=== PATIENT | female | born 1945 | race Caucasian/White ===

== ENCOUNTER 2023-12-08 12:07 | Observation (INO) | payer MEDICARE, OTHER ==
[2023-12-08] VITALS (7 sets, daily range): BP systolic 126–144; BP diastolic 60–88; PULSE 69–76; RESP 18–20; TEMP 97.1–98.7; O2SAT 95–98
[~2023-12-08] VITALS: Ht 147.3 cm; Wt 49.4 kg
[2023-12-08 13:11] LABS: HEMATOCRIT(ML) 33.1 % (36.0-46.0); HEMOGLOBIN 10.7 g/dL (12.0-15.0); MEAN CORP HGB 28.5 pg (26-34); MEAN CORP HGB CONCENTRATION 32.3 g/dL (33-36.5); MEAN CORP VOLUME 88.3 fL (78-100); RED BLOOD CELL 3.75 10^6/uL (4.00-5.20); RED CELL DISTRIBUTION WIDTH 14.6 % (11.5-14.5); WHITE BLOOD CELL 7.4 10^3/uL (4.5-11.0)
[2023-12-08] MEDS ORDERED: ZOFRAN ONE (13:21)
[2023-12-08] MEDS: NS 1000ML 1,000 ML IV STA (13:25)
[2023-12-08] MEDS: ZOFRAN IV PRN (13:25)
[2023-12-08 13:32] LABS: ALBUMIN(ML) 3.9 g/dL (3.4-5.0); ALBUMIN/GLOBULIN RATIO 1.083; ANION GAP 11.1; BILIRUBIN,DIRECT 0.1 mg/dL (0.0-0.3); BILIRUBIN,INDIRECT 0.2 mg/dL; BUN/CREATININE RATIO 15.46 (10.0-20.0); CALCIUM 9.7 mg/dL (8.4-10.5); CREATININE SERUM 1.94 mg/dL (0.59-1.40); EST GFR, NON-AA 24.8 (>/=60); POTASSIUM 4.1 mmol/L (3.6-5.2)
[2023-12-08 14:45] LABS: BILIRUBIN,URINE NEGATIVE (NEGATIVE); LEUKOCYTE ESTERASE ,URINE NEGATIVE (NEGATIVE); NITRATE,URINE NEGATIVE (NEGATIVE); UROBILINOGEN,URINE 0.2 E.U./dL (0.2)
[2023-12-08 14:57] LABS: APPEARANCE,URINE CLEAR; UA COLOR YELLOW
[2023-12-08] MEDS ORDERED: ZOFRAN IV PRN (17:00)
[2023-12-08] MEDS ORDERED: TYLENOL PO PRN (17:00)
[2023-12-08] MEDS ORDERED: D5NS 1,000 ML ONE (17:59)
[2023-12-08] MEDS: MIRALAX PO SCH (18:00)
[2023-12-08] MEDS: COLACE PO SCH (18:00)
[2023-12-08] MEDS: D5NS 1,000 ML IV SCH (18:00)
[2023-12-08] MEDS ORDERED: SENN8.6T11 PO (19:06)
[2023-12-08] MEDS ORDERED: FLUO40CA2 PO (19:06)
[2023-12-08] MEDS ORDERED: BUSP10TA PO (19:06)
[2023-12-08] MEDS ORDERED: PANT40TA6 PO (19:06)
[2023-12-08] MEDS ORDERED: [UNRECOGNIZED DRUG - CODE] PO (19:06)
[2023-12-08] MEDS ORDERED: [UNRECOGNIZED DRUG - CODE] PO (19:06)
[2023-12-08] MEDS ORDERED: CETI10CA11 PO (19:06)
[2023-12-08] MEDS ORDERED: LEVO75TA6 PO (19:06)
[2023-12-08] MEDS ORDERED: FLUT16SP (19:06)
[2023-12-08] MEDS ORDERED: TRIA1CAP7 PO (19:06)
[2023-12-08] MEDS ORDERED: [UNRECOGNIZED DRUG - CODE] PO (19:06)
[2023-12-08] MEDS ORDERED: ROSU40TA PO (19:06)
[2023-12-09 00:23] VITALS: BP 122/76; PULSE 68; RESP 18; TEMP 98.2; O2SAT 98
[2023-12-09 05:27] LABS: BASOPHIL % 0.3 % (0.0-0.2); EOSINOPHIL # 0.1 10^3/uL (0.0-0.2); EOSINOPHIL % 1.7 % (0.0-5.0); HEMATOCRIT(ML) 33.9 % (36.0-46.0); HEMOGLOBIN 10.8 g/dL (12.0-15.0); LYMPHOCYTES # 1.19 10^3/uL1 (1.0-4.8); LYMPHOCYTES % 18.2 % (24.0-44.0); MEAN CORP HGB 28.3 pg (26-34); MEAN CORP HGB CONCENTRATION 31.9 g/dL (33-36.5); MEAN CORP VOLUME 88.7 fL (78-100); MONOCYTES # 0.5 10^3/uL (0.3-0.8); MONOCYTES % 6.9 % (5.0-12.0); NEUTROPHIL # 4.8 10^3/uL (1.8-7.7); NEUTROPHILS % 72.7 % (41.0-85.0); PLATELET COUNT 251 10^3/uL (150-400); RED BLOOD CELL 3.82 10^6/uL (4.00-5.20); RED CELL DISTRIBUTION WIDTH 14.9 % (11.5-14.5); WHITE BLOOD CELL 6.5 10^3/uL (4.5-11.0)
[2023-12-09 05:42] VITALS: BP 130/78; PULSE 70; RESP 20; TEMP 98.2; O2SAT 97
[2023-12-09 05:43] LABS: ANION GAP 12.6; BUN/CREATININE RATIO 14.5 (10.0-20.0); CALCIUM 8.5 mg/dL (8.4-10.5); CREATININE SERUM 1.31 mg/dL (0.59-1.40); EST GFR, NON-AA 39.1 (>/=60); POTASSIUM 3.6 mmol/L (3.6-5.2)
[2023-12-09 06:31] LABS: +ADD MANUAL DIFF(NO CHRG) NO
[2023-12-09 07:56] VITALS: BP 162/89; PULSE 74; RESP 18; TEMP 98; O2SAT 95
[2023-12-09] MEDS: D5W-1/2NS 1000ML 1,000 ML IV SCH (09:21)
[2023-12-09] MEDS ORDERED: POLY17PO5 PO (10:59)
[2023-12-09 13:17] VITALS: BP 155/89; PULSE 75; RESP 18; TEMP 97.9
[2023-12-09 13:20] VITALS: BP 155/89; PULSE 75; RESP 18; TEMP 97.9; O2SAT 95
== END 2023-12-09 13:50 | disposition home or self-care (01) ==
LOC: ER 12:07 → OBS 15:27
PROVIDERS: ADMIT Internal Medicine; ATTEND Internal Medicine
DX: G93.40 Encephalopathy, unspecified (principal); N17.9 Acute kidney failure, unspecified; E86.0 Dehydration; I10 Essential (primary) hypertension; E78.5 Hyperlipidemia, unspecified; F32.A Depression, unspecified; E03.9 Hypothyroidism, unspecified; K59.00 Constipation, unspecified; N39.0 Urinary tract infection, site not specified; Z88.0 Allergy status to penicillin; Z79.899 Other long term (current) drug therapy
CPT/HCPCS: 36415; 70450; 74176; 80048; 80053; 80076; 81003; 83690; 84443; 85025; 85027; 93005; 96361; 96374; 97161; 97165; 99285; G0378; J2405; J7030; J7042

== ENCOUNTER 2023-12-31 07:52 | Emergency (ER) | payer MEDICARE ==
[~2023-12-31 07:52] MED LIST: BUSP10TA PO; CETI10CA11 PO; FLUO40CA2 PO; FLUT16SP; LEVO75TA6 PO; PANT40TA6 PO; POLY17PO5 PO; ROSU40TA PO; SENN8.6T11 PO; TRIA1CAP7 PO; [UNRECOGNIZED DRUG - CODE] PO; [UNRECOGNIZED DRUG - CODE] PO; [UNRECOGNIZED DRUG - CODE] PO
== END 2023-12-31 09:30 | disposition home or self-care (01) ==
LOC: ER 07:52
DX: K56.41 Fecal impaction (principal)
CPT/HCPCS: 74019; 99283

== ENCOUNTER → 2024-08-07 | Outpatient (CLI) | payer MEDICARE | END | disposition home or self-care (01) | LOC: MERGE 10:42 → RT 10:42 | PROVIDERS: ATTEND Nurse Practitioner Family | DX: R06.02 Shortness of breath (principal); R06.09 Other forms of dyspnea; M47.814 Spondylosis without myelopathy or radiculopathy, thoracic region; I70.0 Atherosclerosis of aorta | CPT/HCPCS: 71046; 94060; 94729 ==

== ENCOUNTER 2024-08-12 17:52 | Emergency (ER) | payer MEDICARE ==
[~2024-08-12] VITALS: Ht 147.3 cm; Wt 50.3 kg
[2024-08-12 18:22] VITALS: BP 139/105; PULSE 90; RESP 18; TEMP 99; O2SAT 99
[2024-08-12 19:53] VITALS: BP 131/83; PULSE 88; RESP 18; TEMP 99; O2SAT 99
== END 2024-08-12 19:58 | disposition home or self-care (01) ==
LOC: ER 17:52
DX: K59.00 Constipation, unspecified (principal); I10 Essential (primary) hypertension; Z90.49 Acquired absence of other specified parts of digestive tract; Z90.710 Acquired absence of both cervix and uterus; Z90.721 Acquired absence of ovaries, unilateral; Z88.0 Allergy status to penicillin; Z88.5 Allergy status to narcotic agent
CPT/HCPCS: 74019; 99283

== ENCOUNTER → 2024-11-09 | Outpatient (CLI) | payer MEDICARE ==
[~2024-11-09] MED LIST changes: +[UNRECOGNIZED DRUG - CODE] PO; -[UNRECOGNIZED DRUG - CODE] PO
[2024-11-09 13:00] LABS: ANION GAP 14.9; BUN/CREATININE RATIO 19.29 (10.0-20.0); CREATININE SERUM 1.71 mg/dL (0.59-1.40); POTASSIUM 3.9 mmol/L (3.6-5.2)
[2024-11-09 13:01] LABS: ALBUMIN(ML) 3.9 g/dL (3.4-5.0); ALBUMIN/GLOBULIN RATIO 0.928; CALCIUM 10.4 mg/dL (8.4-10.5); EST GFR, NON-AA 28.7 (>/=60); LDL/HDL RATIO 1.2
== END | disposition home or self-care (01) ==
LOC: LAB 12:13
PROVIDERS: ATTEND Internal Medicine
DX: E78.2 Mixed hyperlipidemia (principal); E03.9 Hypothyroidism, unspecified
CPT/HCPCS: 36415; 80053; 80061; 84443

== ENCOUNTER → 2024-11-28 | Outpatient (CLI) | payer MEDICARE ==
[2024-11-28 13:48] LABS: LEUKOCYTE ESTERASE ,URINE 2+ (NEGATIVE); NITRATE,URINE NEGATIVE (NEGATIVE); UROBILINOGEN,URINE 0.2 E.U./dL (0.2)
[2024-11-28 13:56] LABS: ALBUMIN(ML) 3.9 g/dL (3.4-5.0); ALBUMIN/GLOBULIN RATIO 1.026; ANION GAP 12.3; BUN/CREATININE RATIO 13.55 (10.0-20.0); CALCIUM 9.3 mg/dL (8.4-10.5); CARBON DIOXIDE 26.9 mmol/L (20.0-32); CREATININE SERUM 2.14 mg/dL (0.59-1.40); EST GFR, NON-AA 22.1 (>/=60); POTASSIUM 4.2 mmol/L (3.6-5.2)
[2024-11-28 14:04] LABS: APPEARANCE,URINE HAZY; UA COLOR YELLOW
== END | disposition home or self-care (01) ==
LOC: LAB 13:12
PROVIDERS: ATTEND Internal Medicine Infectious Disease
DX: N18.31 Chronic kidney disease, stage 3a (principal); R82.90 Unspecified abnormal findings in urine
CPT/HCPCS: 36415; 80053; 81001; 83735; 83970; 84100; 87086

== ENCOUNTER → 2025-01-08 | Outpatient (CLI) | payer MEDICARE ==
[2025-01-08 12:51] LABS: CREATININE SERUM 2.34 mg/dL (0.59-1.40); EST GFR, NON-AA 20.0 (>/=60)
== END | disposition home or self-care (01) ==
LOC: LAB 12:19
PROVIDERS: ATTEND Nurse Practitioner Family
DX: I12.9 Hypertensive chronic kidney disease with stage 1 through stage 4 chronic kidney disease, or unspecified chronic kidney disease (principal); N18.9 Chronic kidney disease, unspecified
CPT/HCPCS: 36415; 80048